=== PATIENT | male | born 2000 | race Caucasian/White ===

== ENCOUNTER 2025-07-25 20:27 | Emergency (ER) | payer OTHER ==
[~2025-07-25] VITALS: Ht 176.5 cm; Wt 73.0 kg
[2025-07-25 21:08] VITALS: PULSE 78; RESP 18; TEMP 99.8
[2025-07-25] MEDS: IBUPROFEN 600 MG TAB PO STA (21:36)
[2025-07-25 22:45] VITALS: BP 131/94; PULSE 76; RESP 18; TEMP 99; O2SAT 100
== END 2025-07-25 22:45 | disposition home or self-care (01) ==
LOC: FSED 21:11
DX: J02.8 Acute pharyngitis due to other specified organisms (principal)
CPT/HCPCS: 83518; 99282